=== PATIENT | female | born 1965 | race Caucasian/White ===

== ENCOUNTER 2021-05-05 19:51 | Inpatient (IN) | payer BC ==
[2021-05-05] MEDS ORDERED: Sodium Chloride 0.9% 10 ML Syringe FLUSH PRN (20:19)
[2021-05-05] MEDS ORDERED: Alum Hydrox/Mag Hydrox/Simeth 30 ML, Lidocaine 2% 15 ML PO ONE ×2 (20:20)
[2021-05-05] MEDS ORDERED: Sodium Chloride 0.9% 1,000 ML IV STA ×2 (20:20→21:59)
[2021-05-05] MEDS ORDERED: Ondansetron 4 MG/2 ML SDV IVPUSH ONE ×2 (20:20→21:50)
[2021-05-05] MEDS ORDERED: Famotidine 20 MG/2 ML SDV IVPUSH ONE (20:24)
--- NOTE | 2021-05-05 20:48 | EDM.PDOC ---
<Jan Miranda - Last Filed: 05/06/21 00:54> ED HPI GENERAL MEDICAL PROBLEM - General Chief Complaint: Abdominal Pain Stated Complaint: ABDOMINAL PAIN Time Seen by Provider: 05/05/21 20:00 - Related Data Allergies Allergy/AdvReac Type Severity Reaction Status Date / Time No Known Allergies Allergy Verified 05/05/21 20:02 Home Meds: Home Meds Calcium Carb, Citrate/Vit D3 [Calcium + D3 ER Tablet] 1 each PO DAILY 05/06/21 [History] Lactobacillus Acidophilus [Probiotic] 1 each PO DAILY 05/06/21 [History] Non-Formulary Medication [NF Drug] 5 ml PO DAILY 05/06/21 [History] Non-Formulary Medication [NF Drug] 800 mg PO DAILY 05/06/21 [History] Hasty-3 Fatty Acids/Fish Oil [Fish Oil Pearls Softgel] 1 each PO DAILY 05/06/21 [History] Ubidecarenone [Co Q-10] 200 mg PO DAILY 05/06/21 [History] estradioL [Yuvafem] 10 mcg VG DAILY 05/06/21 [History] Course - Re-Assessments/Exams Free Text/Narrative Re-Assessment/Exam: 05/05/21 23:48 Case received from Radha Cain NP, due to end of shift. I agree with her history and physical examination as documented. The patient swab for the SARS-CoV-2 virus has returned negative. Results of the CT of the abdomen and pelvis with oral and IV contrast pending. 05/06/21 00:46 CT of the abdomen and pelvis with oral and IV contrast is read by vRmary as " Changes consistent with acute pancreatitis with moderate ascites as above." 05/06/21 00:54 Test results discussed with the patient and her . As above, the patient has acute pancreatitis. Statistically speaking, this is most likely gallstone pancreatitis. I recommended admission to the hospital to be kept n.p.o., with IV fluid, pain medication, and anti-nausea medication. Further work-up, including an ultrasound, is recommended. The patient and her agreed. 05/06/21 00:57 Case discussed with the Hospitalist Dr. Miramontes at 00:54. He agreed to admit the patient. He requested I write bridge orders including NS at 250 mL/h, pain medication, and antinausea medicine. Departure - Departure Time of Disposition: 00:58 Disposition: Admitted As Inpatient 64 Condition: Good Clinical Impression: Acute pancreatitis Qualifiers: Pancreatitis type: other Acute pancreatitis complication: no infection or necrosis Qualified Code(s): K85.80 - Other acute pancreatitis without necrosis or infection - Discharge Information *PRESCRIPTION DRUG MONITORING PROGRAM REVIEWED*: Not Applicable *COPY OF PRESCRIPTION DRUG MONITORING REPORT IN PATIENT CELESTINO: Not Applicable <Radha Cain - Last Filed: 05/09/21 22:24> ED HPI GENERAL MEDICAL PROBLEM - General Source of Information: Reports: Patient, RN Notes Reviewed History Limitations: Reports: No Limitations - History of Present Illness INITIAL COMMENTS - FREE TEXT/NARRATIVE: Patient is a 55-year-old female presenting to the emergency department with her with complaints of epigastric discomfort as well as constipation. She is currently traveling from [place] reports that she often has problems with constipation when she is traveling. She has not had a bowel movement since Sunday with the exception of some small, hard stools. She tried to use a suppository today but did not have results. Around 1200 today, she ate a steak salad and since that time has been experiencing epigastric discomfort. She describes it as a constant aching with occasional worsening cramping. She has had some mild nausea but denies any vomiting, fever, or chills. She has had no previous abdominal surgeries. She took Gaviscon and Tylenol earlier with with no relief. Epigastric Pain Score (Numeric/FACES): 8 Past Medical History - Past Surgical History Female Surgical History: Reports: Other (See Below) Other Female Surgeries/Procedures: ablation Social & Family History - Tobacco Use Tobacco Use Status *Q: Unknown Ever Used Tobacco ED ROS GENERAL - Review of Systems Review Of Systems: See Below Constitutional: Reports: No Symptoms. Denies: Fever, Chills HEENT: Reports: No Symptoms Respiratory: Reports: No Symptoms Cardiovascular: Reports: No Symptoms Endocrine: Reports: No Symptoms GI/Abdominal: Reports: Abdominal Pain (upper abdomen), Constipation, Nausea. Denies: Diarrhea, Vomiting : Reports: No Symptoms Musculoskeletal: Reports: No Symptoms Skin: Reports: No Symptoms Neurological: Reports: No Symptoms Psychiatric: Reports: No Symptoms Hematologic/Lymphatic: Reports: No Symptoms Immunologic: Reports: No Symptoms ED EXAM, GI/ABD - Physical Exam Exam: See Below Exam Limited By: No Limitations General Appearance: Alert, WD/WN, No Apparent Distress Respiratory/Chest: No Respiratory Distress, Lungs Clear, Normal Breath Sounds, No Accessory Muscle Use, Chest Non-Tender Cardiovascular: Normal Peripheral Pulses, Regular Rate, Rhythm, No Edema, No Gallop, No JVD, No Murmur, No Rub GI/Abdominal Exam: Soft, No Organomegaly, No Distention, No Abnormal Bruit, No Mass, Pelvis Stable, Tender (epigastric and LUQ), Abnormal Bowel Sounds (hypoactive throughout) Neurological: Alert, Oriented, CN II-XII Intact, Normal Cognition, Normal Gait, Normal Reflexes, No Motor/Sensory Deficits Psychiatric: Normal Affect, Normal Mood Skin Exam: Warm, Dry, Intact, Normal Color, No Rash Course - Vital Signs Last Recorded V/S: Last Vital Signs Temp 98.2 F 05/07/21 07:44 Pulse 70 05/07/21 07:44 Resp 18 05/07/21 07:44 BP 127/74 05/07/21 07:44 Pulse Ox 100 05/07/21 07:44 - Orders/Labs/Meds Labs: Laboratory Tests 05/05/21 05/05/21 05/05/21 Range/Units 20:41 20:41 22:30 WBC 12.53 H (3.98-10.04) K/mm3 RBC 4.41 (3.98-5.22) M/mm3 Hgb 13.6 (11.2-15.7) gm/dl Hct 41.5 (34.1-44.9) % MCV 94.1 (79.4-94.8) fl MCH 30.8 (25.6-32.2) pg MCHC 32.8 (32.2-35.5) g/dl RDW Std Deviation 42.0 (36.4-46.3) fL Plt Count 211 (182-369) K/mm3 MPV 11.0 (9.4-12.3) fl Neut % (Auto) 82.4 H (34.0-71.1) % Lymph % (Auto) 11.7 L (19.3-51.7) % Bailey % (Auto) 5.3 (4.7-12.5) % Eos % (Auto) 0.2 L (0.7-5.8) Baso % (Auto) 0.2 (0.1-1.2) % Neut # (Auto) 10.32 H (1.56-6.13) K/mm3 Lymph # (Auto) 1.47 (1.18-3.74) K/mm3 Bailey # (Auto) 0.67 H (0.24-0.36) K/mm3 Eos # (Auto) 0.02 L (0.04-0.36) K/mm3 Baso # (Auto) 0.02 (0.01-0.08) K/mm3 Manual Slide Review Normal smear Sodium 140 (136-145) mEq/L Potassium 3.6 (3.5-5.1) mEq/L Chloride 101 (98-107) mEq/L Carbon Dioxide 28 (21-32) mEq/L Anion Gap 14.6 (5-15) BUN 19 H (7-18) mg/dL Creatinine 0.9 (0.55-1.02) mg/dL Est Cr Clr Drug Dosing 59.70 mL/min Estimated GFR (MDRD) > 60 (>60) mL/min BUN/Creatinine Ratio 21.1 H (14-18) Glucose 109 H (70-99) mg/dL Calcium 8.9 (8.5-10.1) mg/dL Total Bilirubin 0.5 (0.2-1.0) mg/dL AST 15 (15-37) U/L ALT 16 (14-59) U/L Alkaline Phosphatase 64 (46-116) U/L C-Reactive Protein <0.2 (<1.0) mg/dL Total Protein 7.2 (6.4-8.2) g/dl Albumin 4.2 (3.4-5.0) g/dl Globulin 3.0 gm/dL Albumin/Globulin Ratio 1.4 (1-2) Lipase 8737 H (73-393) U/L SARS-CoV-2 RNA (NANCY) Negative (NEGATIVE) Meds: Medications Discontinued Medications Generic Name Dose Route Start Last Admin Trade Name Freq PRN Reason Stop Dose Admin Acetaminophen 650 mg 05/06/21 04:56 05/06/21 05:27 Acetaminophen 325 Mg Tab PO 650 mg Q4H PRN Administration Pain Bisacodyl 5 mg 05/06/21 06:08 Bisacodyl 5 Mg Tab PO DAILY PRN Constipation Al Hydroxide/Mg Hydroxide 30 0 ml 05/05/21 20:20 05/05/21 20:30 ml/ Lidocaine HCl 15 ml PO 05/05/21 20:21 45 ml ONETIME ONE Administration Diatrizoate Meglum/Diatrizoate Sod 90 ml 05/05/21 23:02 05/05/21 23:43 Diatrizoate Meglumine/Diatrizoate Sodium 37% 120 Ml Bottle PO 05/05/21 23:03 90 ml ONETIME ONE Administration Diatrizoate Meglum/Diatrizoate Sod 90 ml 05/05/21 23:42 05/06/21 03:01 Diatrizoate Meglumine/Diatrizoate Sodium 37% 120 Ml Bottle PO 05/05/21 23:43 Not Given ONETIME ONE Docusate Sodium 100 mg 05/06/21 10:30 05/07/21 08:42 Docusate Sodium 100 Mg Cap PO 100 mg BID CHAPIS Administration Famotidine 20 mg 05/05/21 20:24 05/05/21 20:31 Famotidine 20 Mg/2 Ml Sdv IVPUSH 05/05/21 20:25 20 mg ONETIME ONE Administration Heparin Sodium (Porcine) 5,000 units 05/06/21 06:30 05/06/21 07:00 Heparin Sodium 5,000 Units/Ml Vial SUBCUT Not Given Q8H [facility] Heparin Sodium (Porcine) 5,000 units 05/06/21 08:00 05/07/21 08:42 Heparin Sodium 5,000 Units/Ml Vial SUBCUT Not Given Q8H [facility]IS Hydromorphone HCl 0.5 mg 05/05/21 21:54 05/05/21 22:00 Hydromorphone 0.5 Mg/0.5 Ml Syringe IVPUSH 05/05/21 21:55 0.5 mg ONETIME ONE Administration Hydromorphone HCl 0.5 mg 05/05/21 23:52 05/05/21 23:58 Hydromorphone 0.5 Mg/0.5 Ml Syringe IVPUSH 05/05/21 23:53 0.5 mg ONETIME ONE Administration Hydromorphone HCl 0.5 mg 05/06/21 02:18 Hydromorphone 0.5 Mg/0.5 Ml Syringe IVPUSH Q1H PRN Pain Sodium Chloride 1,000 mls @ 150 mls/hr 05/05/21 20:20 05/05/21 20:30 Normal Saline IV 05/06/21 02:59 150 mls/hr NOW STA Administration Sodium Chloride 1,000 mls @ 150 mls/hr 05/05/21 21:59 Normal Saline IV 05/06/21 04:38 NOW STA Sodium Chloride 1,000 mls @ 250 mls/hr 05/06/21 02:30 05/06/21 11:57 Normal Saline IV 250 mls/hr ASDIRECTED CHAPIS Administration Sodium Chloride Confirm 05/06/21 02:23 05/06/21 03:01 Normal Saline Administered 05/06/21 02:24 Not Given Dose 1,000 mls @ as directed .ROUTE .STK-MED ONE Iopamidol 100 ml 05/05/21 23:02 05/05/21 23:44 Iopamidol 612 Mg/Ml 100 Ml Bottle IVPUSH 05/05/21 23:03 100 ml ONETIME ONE Administration Iopamidol 100 ml 05/05/21 23:42 05/06/21 03:01 Iopamidol 612 Mg/Ml 100 Ml Bottle IVPUSH 05/05/21 23:43 Not Given ONETIME ONE Ondansetron HCl 4 mg 05/05/21 20:20 05/05/21 20:31 Ondansetron 4 Mg/2 Ml Sdv IVPUSH 05/05/21 20:21 4 mg ONETIME ONE Administration Ondansetron HCl 4 mg 05/05/21 21:50 05/05/21 22:00 Ondansetron 4 Mg/2 Ml Sdv IVPUSH 05/05/21 21:51 4 mg ONETIME ONE Administration Ondansetron HCl 4 mg 05/06/21 02:19 Ondansetron 4 Mg/2 Ml Sdv IVPUSH Q8H PRN Nausea/Vomiting Oxycodone HCl 5 mg 05/06/21 07:26 Oxycodone 5 Mg Tab PO Q6H PRN Pain (moderate 4-6) Polyethylene Glycol 17 gm 05/06/21 06:08 Polyethylene Glycol 3350 Powder 17 Gm Packet PO DAILY PRN Constipation Polyethylene Glycol 17 gm 05/06/21 10:30 05/07/21 08:42 Polyethylene Glycol 3350 Powder 17 Gm Packet PO 17 gm DAILY CHAPIS Administration Sodium Chloride 10 ml 05/05/21 20:19 05/05/21 20:54 Sodium Chloride 0.9% 10 Ml Syringe FLUSH 10 ml ASDIRECTED PRN Administration Keep Vein Open - Re-Assessments/Exams Free Text/Narrative Re-Assessment/Exam: Patient is a 55-year-old female presenting to the emergency room with complaints of upper abdominal discomfort as well as constipation. She reports that she has frequent times of constipation when traveling. She is currently visiting from [place]. Last time she had a good bowel movement was Sunday. She has had a couple small, hard bowel movement since that time. She took a suppository at home and had a small amount of soft stool as a result of this. Upper abdominal discomfort began around 12:00 today after eating lunch. She feels mildly nauseous but has had no vomiting. Denies any previous abdominal surgeries. On exam, bowel sounds are hypoactive but present. Tenderness is localized to the epigastrium and left upper quadrant. She has had no fever or chills. I have ordered blood work, abdomen flat and upright x-ray, GI cocktail, Zofran, and Pepcid. 05/05/21 21:00 abdomen xray reviewed by myself and Dr. Miranda shows no dilated loops of small bowel, air fluid levels, or free air. There is some increased stool noted through the ascending and descending color. Transverse colon is difficult to visualize. After discussion with pt and her , we will proceed with soapsuds enema. Results of hematology are pending. 05/05/21 21:47 Pt had a large BM after the enema which consisted of a mixture of hard balls of stool and softer stool. She feels somewhat better. She has decreased pressure, however she does still have discomfort in her upper abdomen. Hematology was significant for WBC elevated at 12.53, BUN 19. Lipase is pending. After visiting with lab, this is pending because they are having to diluted indicate that is going to be high. This elevation in lipase along with patient's upper abdominal discomfort is that she is suffering from pancreatitis. Discussed results of this with patient. I have ordered CT scan of the abdomen pelvis with IV and oral contrast. Also give an additional dose of Zofran 4 mg IV as she does feel nauseous and Dilaudid 0.5 mg IV for pain. Discussed from this point on, she should be n.p.o. 07/08/21 22:[address] Miranda. He will assume care of the patient d/t end of shift. Pts pain is well controlled at this time. She will go for CT soon. Sepsis Event Note (ED) - Evaluation Sepsis Screening Result: No Definite Risk
--- NOTE | 2021-05-05 20:52 | CR ---
Abdomen: Supine and upright views of the abdomen were obtained. Comparison: No previous abdominal imaging is available. Several mildly dilated loops of air-filled small bowel are seen with differential air-fluid levels. No free air is seen. Mild scoliosis is noted within the spine. No abnormal calcifications are seen. Visualized lung bases show nothing acute. Impression: 1. Abnormal small bowel gas pattern which represents either a developing small bowel obstruction or prominent gastroenteritis. Please correlate with patient's symptoms. 2. No other acute abnormality is seen. Diagnostic code #3
[2021-05-05] MEDS ORDERED: HYDROmorphone 0.5 MG/0.5 ML Syringe IVPUSH ONE ×2 (21:54→23:52)
[2021-05-05] MEDS ORDERED: Iopamidol 612 MG/ML 100 ML Bottle IVPUSH ONE ×2 (23:02→23:42)
[2021-05-05] MEDS ORDERED: Diatrizoate Meglumine/Diatrizoate Sodium 37% 120 ML Bottle PO ONE ×2 (23:02→23:42)
[2021-05-06] MEDS ORDERED: HYDROmorphone 0.5 MG/0.5 ML Syringe IVPUSH PRN (02:18)
[2021-05-06] MEDS ORDERED: Ondansetron 4 MG/2 ML SDV IVPUSH PRN (02:19)
[2021-05-06] MEDS ORDERED: Sodium Chloride 0.9% 1,000 ML ONE (02:23)
[2021-05-06] MEDS: Sodium Chloride 0.9% 1,000 ML IV SCH ×3 (02:43→11:57)
[2021-05-06] MEDS ORDERED: Acetaminophen 325 MG Tab PO PRN (04:56)
[2021-05-06] MEDS ORDERED: Bisacodyl 5 MG Tab PO PRN (06:08)
[2021-05-06] MEDS ORDERED: Polyethylene Glycol 3350 Powder 17 GM Packet PO PRN (06:08)
[2021-05-06] MEDS ORDERED: Heparin Sodium 5,000 Units/ML Vial SUBCUT SCH (06:30)
--- NOTE | 2021-05-06 07:10 | PCM.HP.2 ---
<Devon Fox - Last Filed: 05/06/21 11:34> H&P History of Present Illness - General Date of Service: 05/06/21 Admit Problem/Dx: Admission Diagnosis/Problem Admission Diagnosis/Problem Acute pancreatitis Source of Information: Patient, Old Records, Provider, RN, RN Notes Reviewed History Limitations: Reports: No Limitations - History of Present Illness Initial Comments - Free Text/Narative: This is a 55-year-old female who presents to ED on 05/05/2021 complaining of abdominal pain and constipation. Originally from [place] and are traveling. She reports that she has been sitting in a car and on a plane for quite some time and that she usually has issues with constipation when traveling. States she is only had small very hard stools since Sunday. She reports she tried a suppository but did not have too much luck. She states prior to presentation she had a steak salad for lunch and since that time she has had epigastric discomfort. States it is constant and occasionally there is a cramping sensation. States nausea but no vomiting, fever, chills, or other infectious symptoms. No prior abdominal surgeries. She took Gaviscon and Tylenol earlier with no relief. In the ED temp is 36.5. Pulse 73. Respirations 18. Blood pressure 134/64. Oxygen saturations are 93% on room air. Labs are obtained showing a WBC of 12.53. Hemoglobin is 13.6. Platelet 211,000. Neutrophils are elevated 82.4%. Sodium is 140. Potassium 3.6. Chloride 101. Carbon dioxide 20. Anion gap is 14.6. BUN is 19. Creatinine 0.9. GFR greater than 60. Glucose is 109. Calcium 8.9. Total bilirubin 0.5. AST is 15, ALT 16, alkaline phosphatase 62. CRP is less than 0.2. Albumin is 4.2. Lipase is very high at 8737. SARS Covid 2 RNA screen is negative. Abdominal x-rays obtained showing abnormal small bowel gas pattern which represents either a developing small bowel obstruction or prominent gastroenteritis. Please correlate with patient's symptoms. No other acute abnormalities seen. She is given a soapsuds enema which results in a large bowel movement containing hard stool balls and softer stool. She is given Zofran for nausea and Dilaudid for pain. She is also made n.p.o. status. CT of the abdomen and pelvis is obtained with contrast which shows findings suspicious for acute pancreatitis within the pancreatic head and a moderate amount of ascites within the abdomen and pelvis. No other acute abnormality is appreciated. She subsequently admitted to the medical floor inpatient status for management of her acute pancreatitis and constipation. She denies any significant past medical history and has no home meds. She is a full code. Her primary care provider is from [place]. Epigastric Pain Score (Numeric/FACES): 8 - Related Data Allergies/Adverse Reactions: Allergies Allergy/AdvReac Type Severity Reaction Status Date / Time No Known Allergies Allergy Verified 05/05/21 20:02 Home Medications: Home Meds Calcium Carb, Citrate/Vit D3 [Calcium + D3 ER Tablet] 1 each PO DAILY 05/06/21 [History] Lactobacillus Acidophilus [Probiotic] 1 each PO DAILY 05/06/21 [History] Non-Formulary Medication [NF Drug] 5 ml PO DAILY 05/06/21 [History] Non-Formulary Medication [NF Drug] 800 mg PO DAILY 05/06/21 [History] Wilson-3 Fatty Acids/Fish Oil [Fish Oil Pearls Softgel] 1 each PO DAILY 05/06/21 [History] Ubidecarenone [Co Q-10] 200 mg PO DAILY 05/06/21 [History] estradioL [Yuvafem] 10 mcg VG DAILY 05/06/21 [History] Past Medical History Gastrointestinal History: Reports: Chronic Constipation Neurological History: Reports: Migraines - Infectious Disease History Infectious Disease History: Reports: None - Past Surgical History Female Surgical History: Reports: Other (See Below) Other Female Surgeries/Procedures: ablation Social & Family History - Family History Family Medical History: No Pertinent Family History - Tobacco Use Tobacco Use Status *Q: Never Tobacco User Second Hand Smoke Exposure: No - Caffeine Use Caffeine Use: Reports: Tea - Recreational Drug Use Recreational Drug Use: No H&P Review of Systems - Review of Systems: Review Of Systems: See Below General: Reports: No Symptoms. Denies: Fever, Chills, Malaise, Weakness, Fatigue HEENT: Reports: No Symptoms. Denies: Headaches, Sore Throat Pulmonary: Reports: No Symptoms. Denies: Shortness of Breath, Wheezing, Pleuritic Chest Pain, Cough, Sputum Cardiovascular: Reports: No Symptoms. Denies: Chest Pain, Palpitations, Dyspnea on Exertion, Edema Gastrointestinal: Reports: Abdominal Pain (Epigastric ), Constipation. Denies: Diarrhea, Difficulty Swallowing, Hematemesis, Hematochezia, Nausea, Vomiting Genitourinary: Reports: No Symptoms. Denies: Pain Musculoskeletal: Reports: No Symptoms Skin: Reports: No Symptoms. Denies: Cyanosis Psychiatric: Reports: No Symptoms. Denies: Confusion Neurological: Reports: No Symptoms. Denies: Confusion, Dizziness, Headache, Numbness, Pre-Existing Deficit, Tingling, Difficulty Walking, Weakness, Gait Disturbance Hematologic/Lymphatic: Reports: No Symptoms Immunologic: Reports: No Symptoms Exam - Exam Exam: See Below - Vital Signs Vital Signs: Last Vital Signs Temp 97.8 F 05/06/21 01:11 Pulse 73 05/06/21 02:05 Resp 18 05/06/21 02:05 BP 147/99 H 05/06/21 02:05 Pulse Ox 97 05/06/21 02:05 Weight: 120 lb 11.2 oz - Exam Quality Assessment: DVT Prophylaxis. No: Supplemental Oxygen, Urinary Catheter General: Alert, Oriented, Cooperative. No: Mild Distress HEENT: Conjunctiva Clear, EACs Clear, Mucosa Moist & [place], Posterior Pharynx Clear Neck: Supple, Trachea Midline Lungs: Clear to Auscultation, Normal Respiratory Effort Cardiovascular: Regular Rate, Regular Rhythm GI/Abdominal Exam: Soft, Distended (mildly ), Guarding, Rigid, Rebound, Tender (epigastric region ), Abnormal Bowel Sounds (hyperactive ) (Female) Exam: Deferred Rectal (Female) Exam: Deferred Back Exam: Normal Inspection, Full Range of Motion Extremities: Normal Inspection, Normal Range of Motion, Non-Tender, No Pedal Edema, Normal Capillary Refill Peripheral Pulses: 2+: Radial (L), Radial (R), Dorsalis Pedis (L), Dorsalis Pedis (R) Skin: Warm, Dry, Intact Neurological: Cranial Nerves Intact (Grossly ) Neuro Extensive - Mental Status: Alert, Oriented x3, Normal Mood/Affect - Patient Data Lab Results Last 24 hrs: Laboratory Results - last 24 hr 05/05/21 05/05/21 05/05/21 Range/Units 20:41 20:41 22:30 WBC 12.53 H (3.98-10.04) K/mm3 RBC 4.41 (3.98-5.22) M/mm3 Hgb 13.6 (11.2-15.7) gm/dl Hct 41.5 (34.1-44.9) % MCV 94.1 (79.4-94.8) fl MCH 30.8 (25.6-32.2) pg MCHC 32.8 (32.2-35.5) g/dl RDW Std Deviation 42.0 (36.4-46.3) fL Plt Count 211 (182-369) K/mm3 MPV 11.0 (9.4-12.3) fl Neut % (Auto) 82.4 H (34.0-71.1) % Lymph % (Auto) 11.7 L (19.3-51.7) % Zavala % (Auto) 5.3 (4.7-12.5) % Eos % (Auto) 0.2 L (0.7-5.8) Baso % (Auto) 0.2 (0.1-1.2) % Neut # (Auto) 10.32 H (1.56-6.13) K/mm3 Lymph # (Auto) 1.47 (1.18-3.74) K/mm3 Z[place]ala # (Auto) 0.67 H (0.24-0.36) K/mm3 Eos # (Auto) 0.02 L (0.04-0.36) K/mm3 Baso # (Auto) 0.02 (0.01-0.08) K/mm3 Manual Slide Review Normal smear Sodium 140 (136-145) mEq/L Potassium 3.6 (3.5-5.1) mEq/L Chloride 101 (98-107) mEq/L Carbon Dioxide 28 (21-32) mEq/L Anion Gap 14.6 (5-15) BUN 19 H (7-18) mg/dL Creatinine 0.9 (0.55-1.02) mg/dL Est Cr Clr Drug Dosing 59.70 mL/min Estimated GFR (MDRD) > 60 (>60) mL/min BUN/Creatinine Ratio 21.1 H (14-18) Glucose 109 H (70-99) mg/dL Calcium 8.9 (8.5-10.1) mg/dL Total Bilirubin 0.5 (0.2-1.0) mg/dL AST 15 (15-37) U/L ALT 16 (14-59) U/L Alkaline Phosphatase 64 (46-116) U/L C-Reactive Protein <0.2 (<1.0) mg/dL Total Protein 7.2 (6.4-8.2) g/dl Albumin 4.2 (3.4-5.0) g/dl Globulin 3.0 gm/dL Albumin/Globulin Ratio 1.4 (1-2) Lipase 8737 H (73-393) U/L SARS-CoV-2 RNA (NANCY) Negative (NEGATIVE) 05/06/21 05/06/21 Range/Units 04:55 04:55 WBC 11.06 H (3.98-10.04) K/mm3 RBC 3.93 L (3.98-5.22) M/mm3 Hgb 11.9 D (11.2-15.7) gm/dl Hct 36.7 (34.1-44.9) % MCV 93.4 (79.4-94.8) fl MCH 30.3 (25.6-32.2) pg MCHC 32.4 (32.2-35.5) g/dl RDW Std Deviation 41.0 (36.4-46.3) fL Plt Count 173 L (182-369) K/mm3 MPV 10.9 (9.4-12.3) fl Neut % (Auto) (34.0-71.1) % Lymph % (Auto) (19.3-51.7) % Zavala % (Auto) (4.7-12.5) % Eos % (Auto) (0.7-5.8) Baso % (Auto) (0.1-1.2) % Neut # (Auto) (1.56-6.13) K/mm3 Lymph # (Auto) (1.18-3.74) K/mm3 Zavala # (Auto) (0.24-0.36) K/mm3 Eos # (Auto) (0.04-0.36) K/mm3 Baso # (Auto) (0.01-0.08) K/mm3 Manual Slide Review Sodium 140 (136-145) mEq/L Potassium 3.6 (3.5-5.1) mEq/L Chloride 104 (98-107) mEq/L Carbon Dioxide 27 (21-32) mEq/L Anion Gap 12.6 (5-15) BUN 11 (7-18) mg/dL Creatinine 0.8 (0.55-1.02) mg/dL Est Cr Clr Drug Dosing 67.06 mL/min Estimated GFR (MDRD) > 60 (>60) mL/min BUN/Creatinine Ratio 13.8 L (14-18) Glucose 109 H (70-99) mg/dL Calcium 7.8 L (8.5-10.1) mg/dL Total Bilirubin (0.2-1.0) mg/dL AST (15-37) U/L ALT (14-59) U/L Alkaline Phosphatase (46-116) U/L C-Reactive Protein (<1.0) mg/dL Total Protein (6.4-8.2) g/dl Albumin (3.4-5.0) g/dl Globulin gm/dL Albumin/Globulin Ratio (1-2) Lipase (73-393) U/L SARS-CoV-2 RNA (NANCY) (NEGATIVE) Result Diagrams: 05/06/21 04:55 05/06/21 04:55 Sepsis Event Note - Evaluation Sepsis Screening Result: No Definite Risk - Focused Exam Vital Signs: Vital Signs Temp Pulse Pulse Resp BP BP Pulse Ox 05/06/21 02:05 73 18 147/99 H 97 05/06/21 01:11 97.8 F 85 18 144/71 H 98 05/06/21 00:09 97.7 F 73 18 134/64 93 L 05/05/21 22:37 76 96 05/05/21 20:02 98.0 F 84 17 171/73 H 100 - Problem List (1) Constipation SNOMED Code(s): 89837471 ICD Code: K59.00 - CONSTIPATION, UNSPECIFIED Status: Acute Priority: High Current Visit: Yes Qualifiers: Constipation type: unspecified constipation type Qualified Code(s): K59.00 - Constipation, unspecified (2) Ascites SNOMED Code(s): 389452316 ICD Code: R18.8 - OTHER ASCITES Status: Acute Priority: High Current Visit: Yes Qualifiers: Ascites type: other type Qualified Code(s): R18.8 - Other ascites (3) Abdominal pain SNOMED Code(s): 83128084 ICD Code: R10.9 - UNSPECIFIED ABDOMINAL PAIN Status: Acute Priority: High Current Visit: Yes Qualifiers: Abdominal location: epigastric Qualified Code(s): R10.13 - Epigastric pain (4) Acute pancreatitis SNOMED Code(s): 026693020 ICD Code: K85.90 - ACUTE PANCREATITIS WITHOUT NECROSIS OR INFECTION, UNSP Status: Acute Priority: High Current Visit: Yes Qualifiers: Pancreatitis type: other Acute pancreatitis complication: no infection or necrosis Qualified Code(s): K85.80 - Other acute pancreatitis without necrosis or infection Problem List Initiated/Reviewed/Updated: Yes Orders Last 24hrs: Active Orders 24 hr Category Date Time Status Patient Status [ADT] Routine ADT 05/06/21 01:13 Active Oxygen Therapy [RC] PRN Care 05/06/21 06:08 Active Peripheral IV Care [RC] Q4HR Care 05/05/21 20:19 Active Up ad Mildred [RC] BID Care 05/06/21 02:17 Active VTE/DVT Education [RC] DAILY Care 05/06/21 06:08 Active Vital Signs [RC] Q4HR Care 05/06/21 06:08 Active NPO Now [Nothing per Oral Now Diet] [DIET] Diet 05/06/21 Breakfast Active Abdomen Pelvis w Cont [CT] Stat Exams 05/05/21 21:47 Taken HEPATIC FUNCTION PANEL,HFP [CHEM] Routine Lab 05/06/21 04:55 Received LIPASE [CHEM] Routine Lab 05/06/21 04:55 Received Acetaminophen [TylenoL] Med 05/06/21 04:56 Active 650 mg PO Q4H PRN HYDROmorphone [Dilaudid] Med 05/06/21 02:18 Active 0.5 mg IVPUSH Q1H PRN Heparin Sodium Med 05/06/21 08:00 Active 5,000 units SUBCUT Q8H Ondansetron [Zofran] Med 05/06/21 02:19 Active 4 mg IVPUSH Q8H PRN Sodium Chloride 0.9% [Normal Saline] 1,000 ml Med 05/06/21 02:30 Active IV ASDIRECTED Sodium Chloride 0.9% [Saline Flush] Med 05/05/21 20:19 Active 10 ml FLUSH ASDIRECTED PRN bisacodyL [Dulcolax] Med 05/06/21 06:08 Active 5 mg PO DAILY PRN polyethylene glycoL 3350 [MiraLAX] Med 05/06/21 06:08 Active 17 gm PO DAILY PRN Peripheral IV Insertion Adult [OM.PC] Stat Oth 05/05/21 20:19 Ordered Code Status [Resuscitation Status] Routine Resus Stat 05/06/21 02:16 Ordered Medication Orders Acetaminophen (Acetaminophen 325 Mg Tab) 650 mg PO Q4H PRN PRN Reason: Pain Last Admin: 05/06/21 05:27 Dose: 650 mg Documented by: BRANDIN Bisacodyl (Bisacodyl 5 Mg Tab) 5 mg PO DAILY PRN PRN Reason: Constipation Heparin Sodium (Porcine) (Heparin Sodium 5,000 Units/Ml Vial) 5,000 units SUBCUT Q8H CHAPIS Hydromorphone HCl (Hydromorphone 0.5 Mg/0.5 Ml Syringe) 0.5 mg IVPUSH Q1H PRN PRN Reason: Pain Sodium Chloride (Normal Saline) 1,000 mls @ 250 mls/hr IV ASDIRECTED CHAPSI Last Admin: 05/06/21 06:47 Dose: 250 mls/hr Documented by: Infusion: 05/06/21 06:43 Dose: 250 mls/hr Documented by: Admin: 05/06/21 02:43 Dose: 250 mls/hr Documented by: VERO Ondansetron HCl (Ondansetron 4 Mg/2 Ml Sdv) 4 mg IVPUSH Q8H PRN PRN Reason: Nausea/Vomiting Polyethylene Glycol (Polyethylene Glycol 3350 Powder 17 Gm Packet) 17 gm PO DAILY PRN PRN Reason: Constipation Sodium Chloride (Sodium Chloride 0.9% 10 Ml Syringe) 10 ml FLUSH ASDIRECTED PRN PRN Reason: Keep Vein Open Last Admin: 05/05/21 20:54 Dose: 10 ml Documented by: SHERINE Assessment/Plan Comment:: Assessment: Day of admission 05/06/2021 * 55-year-old female who presents to ED on 05/05/2021 complaining of abdominal pain and constipation * No significant medical history * Originally from [place] and are traveling -reports that she has been sitting in a car and on a plane for quite some time * Usually has issues with constipation when traveling- only had small very hard stools since Sunday. * Tried a suppository but did not have too much luck. * Reports epigastric discomfort that is constant and occasionally there is a cramping sensation * Denies vomiting, fever, chills, or other infectious symptoms. * No prior abdominal surgeries. * She took Gaviscon and Tylenol earlier with no relief. * Labs obtained in ED and on floor: * WBC 12.53-->11.06 * Hemoglobin is 13.6-->11.9 * Platelet 211,000-->173,000 * Neutrophils are elevated 82.4%. * Sodium is 140-->140 * Potassium 3.6-->3.6 * Chloride 101-->104 * Carbon dioxide 20-->28 * Anion gap is 14.6-->12.6 * BUN is 19-->11. Creatinine 0.9-->0.9. GFR greater than 60--> greater than 60 * Glucose is 109-->109 * Calcium 8.9-->7.8 * Total bilirubin 0.5-->0.6; Direct bilirubin 0.10, Indirect bilirubin 0.50 * AST is 15-->14, ALT 16-->12, alkaline phosphatase 62-->49. * CRP is less than 0.2. * Albumin is 4.2-->3.2. * Lipase is very high at 8737-->5627. * SARS Covid 2 RNA screen is negative. * Abdominal x-ray obtained showing abnormal small bowel gas pattern which represents either a developing small bowel obstruction or prominent gastroenteritis. Please correlate with patient's symptoms. No other acute abnormalities seen. * Given a soapsuds enema which results in a large bowel movement containing hard stool balls and softer stool. * Given Zofran for nausea and Dilaudid for pain. * Made n.p.o. status. * CT of the abdomen and pelvis is obtained with contrast which shows findings suspicious for acute pancreatitis within the pancreatic head and a moderate amount of ascites within the abdomen and pelvis. No other acute abnormality is appreciated. * Subsequently admitted to the medical floor inpatient status for management of her acute pancreatitis and constipation. PLAN: Acute pancreatitis Constipation Abdominal pain * IV fluids as ordered * NPO--> advance to clear liquids * Pain medications as ordered * Monitor labs * Abdominal US to R/O gallbladder involvement * laxatives/stool softeners both scheduled and PRN * Ambulate * Check triglycerides level * Head Turbine Operator consultation Ascites * Likely 2/2 above with no obvious signs of malignancy * PCP follow-up Code status: Full code PCP: From [place] traveling with no local providers VTE prophylaxis: VTE score of 1 - not indicated Disposition: Patient admitted inpatient to medical floor for management of pancreatitis and constipation. Likely length of stay 1 to 3 days. - Mortality Measure Prognosis:: Good <Ranjeet Miramontes Jr - Last Filed: 05/06/21 18:15> H&P History of Present Illness - General Admit Problem/Dx: Admission Diagnosis/Problem Admission Diagnosis/Problem Acute pancreatitis Exam - Vital Signs Vital Signs: Last Vital Signs Temp 98.1 F 05/06/21 16:18 Pulse 71 05/06/21 16:18 Resp 16 05/06/21 16:18 BP 126/81 05/06/21 16:18 Pulse Ox 100 05/06/21 16:18 - Patient Data Lab Results Last 24 hrs: Laboratory Results - last 24 hr 05/05/21 05/05/21 05/05/21 Range/Units 20:41 20:41 22:30 WBC 12.53 H (3.98-10.04) K/mm3 RBC 4.41 (3.98-5.22) M/mm3 Hgb 13.6 (11.2-15.7) gm/dl Hct 41.5 (34.1-44.9) % MCV 94.1 (79.4-94.8) fl MCH 30.8 (25.6-32.2) pg MCHC 32.8 (32.2-35.5) g/dl RDW Std Deviation 42.0 (36.4-46.3) fL Plt Count 211 (182-369) K/mm3 MPV 11.0 (9.4-12.3) fl Neut % (Auto) 82.4 H (34.0-71.1) % Lymph % (Auto) 11.7 L (19.3-51.7) % Zavala % (Auto) 5.3 (4.7-12.5) % Eos % (Auto) 0.2 L (0.7-5.8) Baso % (Auto) 0.2 (0.1-1.2) % Neut # (Auto) 10.32 H (1.56-6.13) K/mm3 Lymph # (Auto) 1.47 (1.18-3.74) K/mm3 Zavala # (Auto) 0.67 H (0.24-0.36) K/mm3 Eos # (Auto) 0.02 L (0.04-0.36) K/mm3 Baso # (Auto) 0.02 (0.01-0.08) K/mm3 Manual Slide Review Normal smear Sodium 140 (136-145) mEq/L Potassium 3.6 (3.5-5.1) mEq/L Chloride 101 (98-107) mEq/L Carbon Dioxide 28 (21-32) mEq/L Anion Gap 14.6 (5-15) BUN 19 H (7-18) mg/dL Creatinine 0.9 (0.55-1.02) mg/dL Est Cr Clr Drug Dosing 59.70 mL/min Estimated GFR (MDRD) > 60 (>60) mL/min BUN/Creatinine Ratio 21.1 H (14-18) Glucose 109 H (70-99) mg/dL Calcium 8.9 (8.5-10.1) mg/dL Total Bilirubin 0.5 (0.2-1.0) mg/dL Direct Bilirubin (0.0-0.2) mg/dl Indirect Bilirubin AST 15 (15-37) U/L ALT 16 (14-59) U/L Alkaline Phosphatase 64 (46-116) U/L C-Reactive Protein <0.2 (<1.0) mg/dL Total Protein 7.2 (6.4-8.2) g/dl Albumin 4.2 (3.4-5.0) g/dl Globulin 3.0 gm/dL Albumin/Globulin Ratio 1.4 (1-2) Triglycerides (<150) mg/dL Lipase 8737 H (73-393) U/L SARS-CoV-2 RNA (NANCY) Negative (NEGATIVE) 05/06/21 05/06/21 05/06/21 Range/Units 04:55 04:55 04:55 WBC 11.06 H (3.98-10.04) K/mm3 RBC 3.93 L (3.98-5.22) M/mm3 Hgb 11.9 D (11.2-15.7) gm/dl Hct 36.7 (34.1-44.9) % MCV 93.4 (79.4-94.8) fl MCH 30.3 (25.6-32.2) pg MCHC 32.4 (32.2-35.5) g/dl RDW Std Deviation 41.0 (36.4-46.3) fL Plt Count 173 L (182-369) K/mm3 MPV 10.9 (9.4-12.3) fl Neut % (Auto) (34.0-71.1) % Lymph % (Auto) (19.3-51.7) % Zavala % (Auto) (4.7-12.5) % Eos % (Auto) (0.7-5.8) Baso % (Auto) (0.1-1.2) % Neut # (Auto) (1.56-6.13) K/mm3 Lymph # (Auto) (1.18-3.74) K/mm3 Zavala # (Auto) (0.24-0.36) K/mm3 Eos # (Auto) (0.04-0.36) K/mm3 Baso # (Auto) (0.01-0.08) K/mm3 Manual Slide Review Sodium 140 (136-145) mEq/L Potassium 3.6 (3.5-5.1) mEq/L Chloride 104 (98-107) mEq/L Carbon Dioxide 27 (21-32) mEq/L Anion Gap 12.6 (5-15) BUN 11 (7-18) mg/dL Creatinine 0.8 (0.55-1.02) mg/dL Est Cr Clr Drug Dosing 67.06 mL/min Estimated GFR (MDRD) > 60 (>60) mL/min BUN/Creatinine Ratio 13.8 L (14-18) Glucose 109 H (70-99) mg/dL Calcium 7.8 L (8.5-10.1) mg/dL Total Bilirubin 0.6 (0.2-1.0) mg/dL Direct Bilirubin 0.10 (0.0-0.2) mg/dl Indirect Bilirubin 0.50 AST 14 L (15-37) U/L ALT 12 L (14-59) U/L Alkaline Phosphatase 49 (46-116) U/L C-Reactive Protein (<1.0) mg/dL Total Protein 5.9 L (6.4-8.2) g/dl Albumin 3.2 L (3.4-5.0) g/dl Globulin 2.7 gm/dL Albumin/Globulin Ratio 1.2 (1-2) Triglycerides (<150) mg/dL Lipase 5627 H (73-393) U/L SARS-CoV-2 RNA (NNACY) (NEGATIVE) 05/06/21 Range/Units 04:55 WBC (3.98-10.04) K/mm3 RBC (3.98-5.22) M/mm3 Hgb (11.2-15.7) gm/dl Hct (34.1-44.9) % MCV (79.4-94.8) fl MCH (25.6-32.2) pg MCHC (32.2-35.5) g/dl RDW Std Deviation (36.4-46.3) fL Plt Count (182-369) K/mm3 MPV (9.4-12.3) fl Neut % (Auto) (34.0-71.1) % Lymph % (Auto) (19.3-51.7) % Zavala % (Auto) (4.7-12.5) % Eos % (Auto) (0.7-5.8) Baso % (Auto) (0.1-1.2) % Neut # (Auto) (1.56-6.13) K/mm3 Lymph # (Auto) (1.18-3.74) K/mm3 Zavala # (Auto) (0.24-0.36) K/mm3 Eos # (Auto) (0.04-0.36) K/mm3 Baso # (Auto) (0.01-0.08) K/mm3 Manual Slide Review Sodium (136-145) mEq/L Potassium (3.5-5.1) mEq/L Chloride (98-107) mEq/L Carbon Dioxide (21-32) mEq/L Anion Gap (5-15) BUN (7-18) mg/dL Creatinine (0.55-1.02) mg/dL Est Cr Clr Drug Dosing mL/min Estimated GFR (MDRD) (>60) mL/min BUN/Creatinine Ratio (14-18) Glucose (70-99) mg/dL Calcium (8.5-10.1) mg/dL Total Bilirubin (0.2-1.0) mg/dL Direct Bilirubin (0.0-0.2) mg/dl Indirect Bilirubin AST (15-37) U/L ALT (14-59) U/L Alkaline Phosphatase (46-116) U/L C-Reactive Protein (<1.0) mg/dL Total Protein (6.4-8.2) g/dl Albumin (3.4-5.0) g/dl Globulin gm/dL Albumin/Globulin Ratio (1-2) Triglycerides 17 (<150) mg/dL Lipase (73-393) U/L SARS-CoV-2 RNA (NANCY) (NEGATIVE) Result Diagrams: 05/06/21 04:55 05/06/21 04:55 Sepsis Event Note - Focused Exam Vital Signs: Vital Signs Temp Pulse Resp BP Pulse Ox 05/06/21 16:18 98.1 F 71 16 126/81 100 05/06/21 12:39 98.2 F 67 18 116/82 98 05/06/21 08:27 98.2 F 70 20 117/56 L 100 Orders Last 24hrs: Active Orders 24 hr Category Date Time Status Patient Status [ADT] Routine ADT 05/06/21 01:13 Active Height and Weight [RC] 06 Care 05/06/21 07:15 Active Intake and Output [RC] 04,16 Care 05/06/21 07:15 Active Oxygen Therapy [RC] PRN Care 05/06/21 06:08 Active Peripheral IV Care [RC] Q4HR Care 05/05/21 20:19 Active Pulse Oximetry [RC] PRN Care 05/06/21 07:15 Active Up ad Mildred [RC] BID Care 05/06/21 02:17 Active VTE/DVT Education [RC] DAILY Care 05/06/21 06:08 Active Vital Signs [RC] Q4HR Care 05/06/21 06:08 Active Consult to Head Turbine Operator [CONS] Routine Cons 05/06/21 07:15 Active Soft Diet [DIET] Diet 05/06/21 Dinner Active CBC WITH AUTO DIFF [HEME] AM Lab 05/07/21 05:11 Ordered CBC WITH AUTO DIFF [HEME] AM Lab 05/08/21 05:11 Ordered CBC WITH AUTO DIFF [HEME] AM Lab 05/09/21 05:11 Ordered CBC WITH AUTO DIFF [HEME] AM Lab 05/10/21 05:11 Ordered COMPREHENSIVE METABOLIC PN,CMP [CHEM] AM Lab 05/07/21 05:11 Ordered COMPREHENSIVE METABOLIC PN,CMP [CHEM] AM Lab 05/08/21 05:11 Ordered COMPREHENSIVE METABOLIC PN,CMP [CHEM] AM Lab 05/09/21 05:11 Ordered COMPREHENSIVE METABOLIC PN,CMP [CHEM] AM Lab 05/10/21 05:11 Ordered MAGNESIUM [CHEM] AM Lab 05/07/21 05:11 Ordered MAGNESIUM [CHEM] AM Lab 05/08/21 05:11 Ordered MAGNESIUM [CHEM] AM Lab 05/09/21 05:11 Ordered MAGNESIUM [CHEM] AM Lab 05/10/21 05:11 Ordered Acetaminophen [TylenoL] Med 05/06/21 04:56 Active 650 mg PO Q4H PRN Docusate Sodium [Colace] Med 05/06/21 10:30 Active 100 mg PO BID HYDROmorphone [Dilaudid] Med 05/06/21 02:18 Active 0.5 mg IVPUSH Q1H PRN Heparin Sodium Med 05/06/21 08:00 Active 5,000 units SUBCUT Q8H Ondansetron [Zofran] Med 05/06/21 02:19 Active 4 mg IVPUSH Q8H PRN Sodium Chloride 0.9% [Saline Flush] Med 05/05/21 20:19 Active 10 ml FLUSH ASDIRECTED PRN bisacodyL [Dulcolax] Med 05/06/21 06:08 Active 5 mg PO DAILY PRN oxyCODONE Med 05/06/21 07:26 Active 5 mg PO Q6H PRN polyethylene glycoL 3350 [MiraLAX] Med 05/06/21 10:30 Active 17 gm PO DAILY Peripheral IV Insertion Adult [OM.PC] Stat Oth 05/05/21 20:19 Ordered Code Status [Resuscitation Status] Routine Resus Stat 05/06/21 02:16 Ordered Medication Orders Acetaminophen (Acetaminophen 325 Mg Tab) 650 mg PO Q4H PRN PRN Reason: Pain Last Admin: 05/06/21 05:27 Dose: 650 mg Documented by: BRANDIN Bisacodyl (Bisacodyl 5 Mg Tab) 5 mg PO DAILY PRN PRN Reason: Constipation Docusate Sodium (Docusate Sodium 100 Mg Cap) 100 mg PO BID CHAPIS Last Admin: 05/06/21 11:57 Dose: 100 mg Documented by: JOEL Heparin Sodium (Porcine) (Heparin Sodium 5,000 Units/Ml Vial) 5,000 units SUBCUT Q8H [facility] Last Admin: 05/06/21 17:07 Dose: Not Given Documented by: Admin: 05/06/21 08:48 Dose: 5,000 units Documented by: JOEL Hydromorphone HCl (Hydromorphone 0.5 Mg/0.5 Ml Syringe) 0.5 mg IVPUSH Q1H PRN PRN Reason: Pain Ondansetron HCl (Ondansetron 4 Mg/2 Ml Sdv) 4 mg IVPUSH Q8H PRN PRN Reason: Nausea/Vomiting Oxycodone HCl (Oxycodone 5 Mg Tab) 5 mg PO Q6H PRN PRN Reason: Pain (moderate 4-6) Polyethylene Glycol (Polyethylene Glycol 3350 Powder 17 Gm Packet) 17 gm PO DAILY [facility] Last Admin: 05/06/21 11:57 Dose: 17 gm Documented by: JOEL Sodium Chloride (Sodium Chloride 0.9% 10 Ml Syringe) 10 ml FLUSH ASDIRECTED PRN PRN Reason: Keep Vein Open Last Admin: 05/05/21 20:54 Dose: 10 ml Documented by: SHERINE Assessment/Plan Comment:: Case discussed in full. Agree with evaluation, assessment and plan.
[2021-05-06] MEDS ORDERED: oxyCODONE 5 MG Tab PO PRN (07:26)
--- NOTE | 2021-05-06 08:25 | CT ---
CT abdomen and pelvis Technique: Multiple axial sections were obtained from above the dome of the diaphragm inferiorly through the pubic symphysis. Intravenous and oral contrast were given. Oral contrast remains within the stomach and proximal bowel. Reconstructed coronal and sagittal images were obtained. Additional delayed images were obtained through the abdomen and pelvis. Comparison: Prior abdominal x-ray performed earlier the same day. Findings: Visualized lung bases show nothing acute. Liver contains no focal abnormality. Spleen appears within normal limits. Adrenal glands show no nodule. Head of the pancreas is heterogeneous which most likely is due to pancreatitis. Body and tail of the pancreas are normal. There is ascites being seen within the abdomen and within the pelvis. Abdominal aorta shows no aneurysm. No retroperitoneal adenopathy or discrete mesenteric abnormalities are seen. Appendix is not visualized. Kidneys show symmetric contrast enhancement. No hydronephrosis or mass is seen. Contrast is noted within the ureters as well as within the bladder. No discrete pelvic adenopathy is seen. Bone window settings were reviewed which appear within normal limits for the patient's age. Impression: 1. Findings are suspicious for acute pancreatitis within the pancreatic head. Moderate amount of ascites is seen within the abdomen and pelvis. 2. No other acute abnormality is appreciated. Diagnostic code #3 I agree with preliminary report from [facility], finalized on 05/06/21 1:43 AM CDT, code 1
[2021-05-06] MEDS: Heparin Sodium 5,000 Units/ML Vial SUBCUT SCH ×2 (08:48→17:07)
--- NOTE | 2021-05-06 11:22 | US ---
Limited abdominal ultrasound: Multiple real-time images of the upper right abdomen were obtained. Comparison: Prior CT abdomen and pelvis study of 05/05/21. Findings: Liver contains no focal abnormality. Proximal aorta shows no aneurysm. Inferior vena cava is patent. Gallbladder contains no shadowing gallstones. No gallbladder wall thickening or biliary duct dilatation is seen. Right kidney shows no hydronephrosis or mass. Visualized portions of the pancreas show nothing gross. There is a small amount of fluid being seen within Morison's pouch. Right kidney shows no hydronephrosis or mass and has a length of 10.6 cm. Impression: 1. Small amount of fluid within Morison's pouch. 2. No additional abnormality is appreciated on right upper quadrant abdominal ultrasound. Diagnostic code #3
[2021-05-06] MEDS: Polyethylene Glycol 3350 Powder 17 GM Packet PO SCH (11:57)
[2021-05-06] MEDS: Docusate Sodium 100 MG Cap PO SCH ×2 (11:57→20:24)
[2021-05-07] MEDS: Heparin Sodium 5,000 Units/ML Vial SUBCUT SCH ×2 (00:47→08:42)
--- NOTE | 2021-05-07 08:23 | PCM.DCSUM1 ---
Discharge Summary - Hospital Course Free Text/Narrative:: Hospital course: 1. Abdominal pain with CT imaging consistent with acute pancreatitis. Patient was admitted to the internal medicine service for abdominal discomfort in the setting of significant constipation and acute pancreatitis. Initial work-up in the emergency department was notable for significant constipation for which the patient was given an enema. Patient had a large bowel movement and then CT exam was performed which showed peripancreatic st randing and inflammatory changes. She still had a lot of retained stools. Lipase was originally around 8000. Patient was admitted n.p.o. and hydrated with normal saline at 250 cc/h. Pain control was achieved with narcotics both p.o. and intravenously. The patient was given further laxatives in order to augment bowel movements. Pancreatitis most likely secondary to significant constipation and blocking of the sphincter of Oddi. Gallstones, alcohol, hypertriglyceridemia essentially ruled out as a cause for her acute pancreatic inflammation. Upon having significantly large bowel movements the patient started to feel better and was able to tolerate diet. Lipase continued to trend down. Patient was able to visit with dietitian regarding diet changes which would help prevent such significant constipation. On the morning of discharge patient was able to tolerate a diet and large breakfast without increase in pain, nausea or vomiting. Patient wished to be discharged. Of note, patient had some ascites noted in the pelvic floor. Most likely secondary to chronic inflammatory changes. No evidence of malignancy. All of her other medical comorbidities were stable and nonactive conditions and she was kept on her home medications at regular dose. HPI Initial Comments: This is a 55-year-old female who presents to ED on 05/05/2021 complaining of abdominal pain and constipation. Originally from [place] and are traveling. She reports that she has been sitting in a car and on a plane for quite some time and that she usually has issues with constipation when traveling. States she is only had small very hard stools since Sunday. She reports she tried a suppository but did not have too much luck. She states prior to presentation she had a steak salad for lunch and since that time she has had epigastric discomfort. States it is constant and occasionally there is a cramping sensation. States nausea but no vomiting, fever, chills, or other infectious symptoms. No prior abdominal surgeries. She took Gaviscon and Tylenol earlier with no relief. In the ED temp is 36.5. Pulse 73. Respirations 18. Blood pressure 134/64. Oxygen saturations are 93% on room air. Labs are obtained showing a WBC of 12.53. Hemoglobin is 13.6. Platelet 211,000. Neutrophils are elevated 82.4%. Sodium is 140. Potassium 3.6. Chloride 101. Carbon dioxide 20. Anion gap is 14.6. BUN is 19. Creatinine 0.9. GFR greater than 60. Glucose is 109. Calcium 8.9. Total bilirubin 0.5. AST is 15, ALT 16, alkaline phosphatase 62. CRP is less than 0.2. Albumin is 4.2. Lipase is very high at 8737. SARS Covid 2 RNA screen is negative. Abdominal x-rays obtained showing abnormal small bowel gas pattern which represents either a developing small bowel obstruction or prominent gastroenteritis. Please correlate with patient's symptoms. No other acute abnormalities seen. She is given a soapsuds enema which results in a large bowel movement containing hard stool balls and softer stool. She is given Zofran for nausea and Dilaudid for pain. She is also made n.p.o. status. CT of the abdomen and pelvis is obtained with contrast which shows findings suspicious for acute pancreatitis within the pancreatic head and a moderate amount of ascites within the abdomen and pelvis. No other acute abnormality is appreciated. She subsequently admitted to the medical floor inpatient status for management of her acute pancreatitis and constipation. She denies any significant past medical history and has no home meds. She is a full code. Her primary care provider is from [place]. Epigastric Pain Score (Numeric/FACES): 8 - Related Data Allergies/Adverse Reactions: Allergies Allergy/AdvReac Type Severity Reaction Status Date / Time No Known Allergies Allergy Verified 05/05/21 20:02 Home Medications: Home Meds Calcium Carb, Citrate/Vit D3 [Calcium + D3 ER Tablet] 1 each PO DAILY 05/06/21 [History] Lactobacillus Acidophilus [Probiotic] 1 each PO DAILY 05/06/21 [History] Non-Formulary Medication [NF Drug] 5 ml PO DAILY 05/06/21 [History] Non-Formulary Medication [NF Drug] 800 mg PO DAILY 05/06/21 [History] [place]-3 Fatty Acids/Fish Oil [Fish Oil Pearls Softgel] 1 each PO DAILY 05/06/21 [History] Ubidecarenone [Co Q-10] 200 mg PO DAILY 05/06/21 [History] estradioL [Yuvafem] 10 mcg VG DAILY 05/06/21 [History] Past Medical History Gastrointestinal History: Reports: Chronic Constipation Neurological History: Reports: Migraines - Infectious Disease History Infectious Disease History: Reports: None - Past Surgical History Female Surgical History: Reports: Other (See Below) Other Female Surgeries/Procedures: ablation Social & Family History - Family History Family Medical History: No Pertinent Family History - Tobacco Use Tobacco Use Status *Q: Never Tobacco User Second Hand Smoke Exposure: No - Caffeine Use Caffeine Use: Reports: Tea - Recreational Drug Use Recreational Drug Use: No H&P Review of Systems - Review of Systems: Review Of Systems: See Below General: Reports: No Symptoms. Denies: Fever, Chills, Malaise, Weakness, Fatigue HEENT: Reports: No Symptoms. Denies: Headaches, Sore Throat Pulmonary: Reports: No Symptoms. Denies: Shortness of Breath, Wheezing, Pleuritic Chest Pain, Cough, Sputum Cardiovascular: Reports: No Symptoms. Denies: Chest Pain, Palpitations, Dyspnea on Exertion, Edema Gastrointestinal: Reports: Abdominal Pain (Epigastric ), Constipation. Denies: Diarrhea, Difficulty Swallowing, Hematemesis, Hematochezia, Nausea, Vomiting Genitourinary: Reports: No Symptoms. Denies: Pain Musculoskeletal: Reports: No Symptoms Skin: Reports: No Symptoms. Denies: Cyanosis Psychiatric: Reports: No Symptoms. Denies: Confusion Neurological: Reports: No Symptoms. Denies: Confusion, Dizziness, Headache, Numbness, Pre-Existing Deficit, Tingling, Difficulty Walking, Weakness, Gait Disturbance Hematologic/Lymphatic: Reports: No Symptoms Immunologic: Reports: No Symptoms Exam - Exam Exam: See Below - Vital Signs Vital Signs: Last Vital Signs Temp 97.8 F 05/06/21 01:11 Pulse 73 05/06/21 02:05 Resp 18 05/06/21 02:05 BP 147/99 H 05/06/21 02:05 Pulse Ox 97 05/06/21 02:05 Weight: 120 lb 11.2 oz - Exam Quality Assessment: DVT Prophylaxis. No: Supplemental Oxygen, Urinary Catheter General: Alert, Oriented, Cooperative. No: Mild Distress HEENT: Conjunctiva Clear, EACs Clear, Mucosa Moist & [place], Posterior Pharynx Clear Neck: Supple, Trachea Midline Lungs: Clear to Auscultation, Normal Respiratory Effort Cardiovascular: Regular Rate, Regular Rhythm GI/Abdominal Exam: Soft, Distended (mildly ), Guarding, Rigid, Rebound, Tender (epigastric region ), Abnormal Bowel Sounds (hyperactive ) (Female) Exam: Deferred Rectal (Female) Exam: Deferred Back Exam: Normal Inspection, Full Range of Motion Extremities: Normal Inspection, Normal Range of Motion, Non-Tender, No Pedal Edema, Normal Capillary Refill Peripheral Pulses: 2+: Radial (L), Radial (R), Dorsalis Pedis (L), Dorsalis Pedis (R) Skin: Warm, Dry, Intact Neurological: Cranial Nerves Intact (Grossly ) Neuro Extensive - Mental Status: Alert, Oriented x3, Normal Mood/Affect - Discharge Data Discharge Date: 05/07/21 Discharge Disposition: Home, Self-Care 01 Condition: Good - Referral to Home Health Primary Care Physician: PCP Not In Area - Patient Summary/Data Consults: Consultations 05/06/21 07:15 Consult to Driller Multiple Spindle [CONS] Routine - Patient Instructions Diet, Other: As instructed by assembly adjuster Other/Special Instructions: Follow-up with PCP upon return home to [place]. Continue taking medications as listed. Activity and diet are as tolerated. If you experience any signs or symptoms that warranted this admission please do not hesitate to call your primary care physician or present to an emergency department for an immediate evaluation. - Discharge Plan *PRESCRIPTION DRUG MONITORING PROGRAM REVIEWED*: Not Applicable *COPY OF PRESCRIPTION DRUG MONITORING REPORT IN PATIENT CELESTINO: Not Applicable Home Medications: Home Meds Calcium Carb, Citrate/Vit D3 [Calcium + D3 ER Tablet] 1 each PO DAILY 05/06/21 [History] Lactobacillus Acidophilus [Probiotic] 1 each PO DAILY 05/06/21 [History] Non-Formulary Medication [NF Drug] 5 ml PO DAILY 05/06/21 [History] Non-Formulary Medication [NF Drug] 800 mg PO DAILY 05/06/21 [History] Quinby-3 Fatty Acids/Fish Oil [Fish Oil Pearls Softgel] 1 each PO DAILY 05/06/21 [History] Ubidecarenone [Co Q-10] 200 mg PO DAILY 05/06/21 [History] estradioL [Yuvafem] 10 mcg VG DAILY 05/06/21 [History] Forms: ED Department Discharge Referrals: PCP,Not In Area [Primary Care Provider] - (follow up with Primary doctor when you get back home.) - Discharge Summary/Plan Comment DC Time >30 min.: Yes - General Info Date of Service: 05/07/21 Admission Dx/Problem (Free Text: Admission Diagnosis/Problem Admission Diagnosis/Problem Acute pancreatitis Subjective Update: No acute events overnight. No new nursing concerns this morning. Patient is ordered breakfast and is looking forward to leaving today. Has some upper abdominal discomfort but tolerable. Functional Status: Reports: Pain Controlled - Patient Data Vitals - Most Recent: Last Vital Signs Temp 98.2 F 05/07/21 07:44 Pulse 70 05/07/21 07:44 Resp 18 05/07/21 07:44 BP 127/74 05/07/21 07:44 Pulse Ox 100 05/07/21 07:44 Weight - Most Recent: 117 lb 4.8 oz I&O - Last 24 hours: Intake & Output 05/06/21 05/07/21 05/07/21 22:59 06:59 14:59 Intake Total 3280 800 Output Total 2600 1925 Balance 680 -1125 Lab Results - Last 24 hrs: Laboratory Results - last 24 hr 05/06/21 05/07/21 05/07/21 Range/Units 04:55 04:40 04:40 WBC 8.11 (3.98-10.04) K/mm3 RBC 3.84 L (3.98-5.22) M/mm3 Hgb 11.6 (11.2-15.7) gm/dl Hct 36.6 (34.1-44.9) % MCV 95.3 H (79.4-94.8) fl MCH 30.2 (25.6-32.2) pg MCHC 31.7 L (32.2-35.5) g/dl RDW Std Deviation 43.0 (36.4-46.3) fL Plt Count 157 L (182-369) K/mm3 MPV 11.6 (9.4-12.3) fl Neut % (Auto) 72.4 H (34.0-71.1) % Lymph % (Auto) 16.5 L (19.3-51.7) % [place] % (Auto) 9.0 (4.7-12.5) % Eos % (Auto) 1.7 (0.7-5.8) Baso % (Auto) 0.2 (0.1-1.2) % Neut # (Auto) 5.86 (1.56-6.13) K/mm3 Lymph # (Auto) 1.34 (1.18-3.74) K/mm3 [place] # (Auto) 0.73 H (0.24-0.36) K/mm3 Eos # (Auto) 0.14 (0.04-0.36) K/mm3 Baso # (Auto) 0.02 (0.01-0.08) K/mm3 Sodium 144 (136-145) mEq/L Potassium 3.4 L (3.5-5.1) mEq/L Chloride 109 H (98-107) mEq/L Carbon Dioxide 27 (21-32) mEq/L Anion Gap 11.4 (5-15) BUN 7 (7-18) mg/dL Creatinine 0.7 (0.55-1.02) mg/dL Est Cr Clr Drug Dosing 74.48 mL/min Estimated GFR (MDRD) > 60 (>60) mL/min BUN/Creatinine Ratio 10.0 L (14-18) Glucose 79 (70-99) mg/dL Calcium 8.5 (8.5-10.1) mg/dL Magnesium 1.9 (1.8-2.4) mg/dL Total Bilirubin 0.8 (0.2-1.0) mg/dL AST 14 L (15-37) U/L ALT 11 L (14-59) U/L Alkaline Phosphatase 49 (46-116) U/L Total Protein 6.0 L (6.4-8.2) g/dl Albumin 3.2 L (3.4-5.0) g/dl Globulin 2.8 gm/dL Albumin/Globulin Ratio 1.1 (1-2) Triglycerides 17 (<150) mg/dL Med Orders - Current: Current Medications Acetaminophen (Acetaminophen 325 Mg Tab) 650 mg PO Q4H PRN PRN Reason: Pain Last Admin: 05/06/21 05:27 Dose: 650 mg Documented by: Bisacodyl (Bisacodyl 5 Mg Tab) 5 mg PO DAILY PRN PRN Reason: Constipation Docusate Sodium (Docusate Sodium 100 Mg Cap) 100 mg PO BID CHAPIS Last Admin: 05/06/21 20:24 Dose: 100 mg Documented by: Heparin Sodium (Porcine) (Heparin Sodium 5,000 Units/Ml Vial) 5,000 units SUBCUT Q8H [facility] Last Admin: 05/07/21 00:47 Dose: Not Given Documented by: Hydromorphone HCl (Hydromorphone 0.5 Mg/0.5 Ml Syringe) 0.5 mg IVPUSH Q1H PRN PRN Reason: Pain Ondansetron HCl (Ondansetron 4 Mg/2 Ml Sdv) 4 mg IVPUSH Q8H PRN PRN Reason: Nausea/Vomiting Oxycodone HCl (Oxycodone 5 Mg Tab) 5 mg PO Q6H PRN PRN Reason: Pain (moderate 4-6) Polyethylene Glycol (Polyethylene Glycol 3350 Powder 17 Gm Packet) 17 gm PO DAILY [facility] Last Admin: 05/06/21 11:57 Dose: 17 gm Documented by: Sodium Chloride (Sodium Chloride 0.9% 10 Ml Syringe) 10 ml FLUSH ASDIRECTED PRN PRN Reason: Keep Vein Open Last Admin: 05/05/21 20:54 Dose: 10 ml Documented by: Discontinued Medications Al Hydroxide/Mg Hydroxide 30 (ml/ Lidocaine HCl 15 ml) 0 ml PO ONETIME ONE Stop: 05/05/21 20:21 Last Admin: 05/05/21 20:30 Dose: 45 ml Documented by: Diatrizoate Meglum/Diatrizoate Sod (Diatrizoate Meglumine/Diatrizoate Sodium 37% 120 Ml Bottle) 90 ml PO ONETIME ONE Stop: 05/05/21 23:03 Last Admin: 05/05/21 23:43 Dose: 90 ml Documented by: Diatrizoate Meglum/Diatrizoate Sod (Diatrizoate Meglumine/Diatrizoate Sodium 37% 120 Ml Bottle) 90 ml PO ONETIME ONE Stop: 05/05/21 23:43 Last Admin: 05/06/21 03:01 Dose: Not Given Documented by: Famotidine (Famotidine 20 Mg/2 Ml Sdv) 20 mg IVPUSH ONETIME ONE Stop: 05/05/21 20:25 Last Admin: 05/05/21 20:31 Dose: 20 mg Documented by: Heparin Sodium (Porcine) (Heparin Sodium 5,000 Units/Ml Vial) 5,000 units SUBCUT Q8H [facility] Last Admin: 05/06/21 07:00 Dose: Not Given Documented by: Hydromorphone HCl (Hydromorphone 0.5 Mg/0.5 Ml Syringe) 0.5 mg IVPUSH ONETIME ONE Stop: 05/05/21 21:55 Last Admin: 05/05/21 22:00 Dose: 0.5 mg Documented by: Hydromorphone HCl (Hydromorphone 0.5 Mg/0.5 Ml Syringe) 0.5 mg IVPUSH ONETIME ONE Stop: 05/05/21 23:53 Last Admin: 05/05/21 23:58 Dose: 0.5 mg Documented by: Sodium Chloride (Normal Saline) 1,000 mls @ 150 mls/hr IV NOW STA Stop: 05/06/21 02:59 Last Admin: 05/05/21 20:30 Dose: 150 mls/hr Documented by: Sodium Chloride (Normal Saline) 1,000 mls @ 150 mls/hr IV NOW STA Stop: 05/06/21 04:38 Sodium Chloride (Normal Saline) 1,000 mls @ 250 mls/hr IV ASDIRECTED [facility] Last Admin: 05/06/21 11:57 Dose: 250 mls/hr Documented by: Sodium Chloride (Normal Saline) Confirm Administered Dose 1,000 mls @ as directed .ROUTE .STK-MED ONE Stop: 05/06/21 02:24 Last Admin: 05/06/21 03:01 Dose: Not Given Documented by: Iopamidol (Iopamidol 612 Mg/Ml 100 Ml Bottle) 100 ml IVPUSH ONETIME ONE Stop: 05/05/21 23:03 Last Admin: 05/05/21 23:44 Dose: 100 ml Documented by: Iopamidol (Iopamidol 612 Mg/Ml 100 Ml Bottle) 100 ml IVPUSH ONETIME ONE Stop: 05/05/21 23:43 Last Admin: 05/06/21 03:01 Dose: Not Given Documented by: Ondansetron HCl (Ondansetron 4 Mg/2 Ml Sdv) 4 mg IVPUSH ONETIME ONE Stop: 05/05/21 20:21 Last Admin: 05/05/21 20:31 Dose: 4 mg Documented by: Ondansetron HCl (Ondansetron 4 Mg/2 Ml Sdv) 4 mg IVPUSH ONETIME ONE Stop: 05/05/21 21:51 Last Admin: 05/05/21 22:00 Dose: 4 mg Documented by: Polyethylene Glycol (Polyethylene Glycol 3350 Powder 17 Gm Packet) 17 gm PO DAILY PRN PRN Reason: Constipation - Exam General: Reports: Alert Lungs: Reports: Clear to Auscultation, Normal Respiratory Effort Cardiovascular: Reports: Regular Rate, Regular Rhythm GI/Abdominal Exam: Normal Bowel Sounds, Soft, No Distention, Tender (Very mild tenderness in the epigastric region with deep palpation.). No: Guarding, Rebound Extremities: Normal Inspection, No Pedal Edema Skin: Reports: Warm, Dry Neurological: Reports: No New Focal Deficit Psy/Mental Status: Reports: Normal Affect
[2021-05-07] MEDS: Polyethylene Glycol 3350 Powder 17 GM Packet PO SCH (08:42)
[2021-05-07] MEDS: Docusate Sodium 100 MG Cap PO SCH (08:42)
== END 2021-05-07 09:00 | disposition home or self-care (01) | DRG 254 ==
LOC: JD.ED 19:51 → JD.MS 05-06 01:13
PROVIDERS: ADMIT Hospitalist; ATTEND Hospitalist
DX: K59.00 Constipation, unspecified (principal); K85.80 Other acute pancreatitis without necrosis or infection; R18.8 Other ascites; Z20.822 Contact with and (suspected) exposure to COVID-19
CPT/HCPCS: 36415; 74019; 74019-26; 74177; 74177-26; 76705; 76705-26; 80048; 80053; 80076; 83690; 83735; 84478; 85025; 85027; 86140; A9270-GY; J1170; J1644; J2405; J3490; J7030; Q9963; Q9967; U0002